=== PATIENT | female | born 1980 | race Caucasian/White ===

== ENCOUNTER 2017-05-07 13:32 | Emergency (ER) | payer OTHER ==
[~2017-05-07 13:32] MED LIST: ADDERALL 10 MG10 MG PO; ATIVAN2 MG PO; CYCLOBENZAPRINE10 MG PO; FLEXERIL5 MG PO; KLONOPIN1 MG PO; NEURONTIN 300300 MG PO
[2017-05-07 14:23] LABS: APPEARANCE HAZY (CLEAR); BILIRUBIN NEGATIVE (NEGATIVE); COLOR YELLOW (YELLOW); GLUCOSE NEGATIVE (NEGATIVE); KETONE NEGATIVE (NEGATIVE); LEUKOCYTE ESTERASE TRACE (NEGATIVE); NITRITE NEGATIVE (NEGATIVE); PROTEIN NEGATIVE (NEGATIVE); UROBILINOGEN NORMAL (NORMAL)
[2017-05-07 14:25] LABS: BACTERIA FEW /hpf (NONE SEEN); MUCUS <1+ /lpf (NONE SEEN); RED CELLS - URINE 0-5 /hpf (0-5); WHITE CELLS - URINE 0-5 /hpf (0-5)
[2017-05-07 14:29] LABS: UDS - AMPHET NEGATIVE QUAL (NEGATIVE); UDS - BARB NEGATIVE QUAL (NEGATIVE); UDS - BENZO POSITIVE QUAL (NEGATIVE); UDS - COCAINE NEGATIVE QUAL (NEGATIVE); UDS - METH NEGATIVE QUAL (NEGATIVE); UDS - OPIATE NEGATIVE QUAL (NEGATIVE); UDS - PCP NEGATIVE QUAL (NEGATIVE)
[2017-05-07 14:33] LABS: UDS - THC POSITIVE QUAL (NEGATIVE)
[2017-05-07 14:43] LABS: BASOPHILS 0.3 % (0-2); HEMATOCRIT 41.2 % (36.0-48.0); HEMOGLOBIN 13.9 g/dL (12-16); IMMATURE GRANULOCYTES 0.3 % (0-5); LYMPHOCYTES 27.6 % (15-50); MCH 29.9 pg (26.0-34.0); MCHC 33.7 g/dL (31.0-37.0); MCV 88.6 fL (80.0-100.0); MEAN PLATELET VOLUME 11.3 fL (7.4-10.4); MONOCYTES 4.5 % (2-11); NEUTROPHILS 65.3 % (40-80); PLATELET COUNT 260 10x3/uL (130-400); RBC 4.65 10x6/uL (4.00-5.40); RDW 12.3 % (11.5-14.5); WBC 10.1 10x3/uL (4.8-10.8)
[2017-05-07 15:03] LABS: ALKALINE PHOSPHATASE 107 U/L (46-116); ALT (SGPT) 24 U/L (10-68); BILIRUBIN - TOTAL 0.19 mg/dL (0.2-1.3); CALC OSMOLALITY 278 mosm/kg (275-300); CALCIUM 8.5 mg/dL (8.5-10.1); CARBON DIOXIDE 26.8 mmol/L (21.0-32.0); CHLORIDE - SERUM 101 mmol/L (98-107); CREATININE - SERUM 0.9 mg/dL (0.6-1.3); GLUCOSE 133 mg/dL (74-106); POTASSIUM - SERUM 3.9 mmol/L (3.5-5.1); PROTEIN - SERUM 7.3 g/dL (6.4-8.2); SODIUM 139 mmol/L (136-145); UREA NITROGEN 10 mg/dL (7-18); eGFR NON AFRICAN AMERICAN 76 mL/min (90-120)
== END 2017-05-08 07:42 ==
LOC: D.ER 13:32
PROVIDERS: Emergency Medicine
DX: F23 Brief psychotic disorder (principal); R45.851 Suicidal ideations

== ENCOUNTER 2018-09-13 14:38 | Emergency (ER) | payer SELFPAY ==
[~2018-09-13] VITALS: Ht 170.2 cm; Wt 72.7 kg
[2018-09-13 14:40] VITALS: Ht 170.2 cm; Wt 72.7 kg
[2018-09-13] MEDS ORDERED: LITHIUM CARBON300 MG PO (14:43)
[2018-09-13] MEDS ORDERED: GENTAK3.5 GM LEFT EYE (15:57)
[2018-09-13 16:35] VITALS: BP 121/90
== END 2018-09-13 16:35 | disposition home or self-care (01) ==
LOC: D.ER 14:38
DX: S05.02XA Injury of conjunctiva and corneal abrasion without foreign body, left eye, initial encounter (principal); X58.XXXA Exposure to other specified factors, initial encounter; Y93.89 Activity, other specified; Y92.89 Other specified places as the place of occurrence of the external cause; G40.909 Epilepsy, unspecified, not intractable, without status epilepticus; F17.200 Nicotine dependence, unspecified, uncomplicated

== ENCOUNTER 2019-01-03 13:58 | Emergency (ER) | payer MEDICAID ==
[~2019-01-03] VITALS: Ht 170.2 cm; Wt 79.5 kg
[~2019-01-03 13:58] MED LIST changes: +GENTAK3.5 GM LEFT EYE; +LITHIUM CARBON300 MG PO
[2019-01-03 14:13] VITALS: Ht 170.2 cm; Wt 79.5 kg
[2019-01-03 14:39] LABS: HCG URINE NEGATIVE (NEGATIVE)
[2019-01-03 14:48] LABS: UDS - AMPHET POSITIVE QUAL (NEGATIVE); UDS - BARB NEGATIVE QUAL (NEGATIVE); UDS - BENZO NEGATIVE QUAL (NEGATIVE); UDS - COCAINE NEGATIVE QUAL (NEGATIVE); UDS - OPIATE NEGATIVE QUAL (NEGATIVE); UDS - PCP NEGATIVE QUAL (NEGATIVE); UDS - THC POSITIVE QUAL (NEGATIVE)
[2019-01-03 14:52] LABS: APPEARANCE CLEAR (CLEAR); BILIRUBIN NEGATIVE (NEGATIVE); COLOR YELLOW (YELLOW); GLUCOSE NEGATIVE (NEGATIVE); KETONE NEGATIVE (NEGATIVE); NITRITE NEGATIVE (NEGATIVE); PROTEIN 1+ mg/dL (NEGATIVE); UROBILINOGEN NORMAL (NORMAL)
[2019-01-03 14:52] LABS: BASOPHILS 0.5 % (0-2); EOSINOPHILS 4.2 % (0-7); HEMATOCRIT 41.2 % (36.0-48.0); HEMOGLOBIN 13.7 g/dL (12-16); IMMATURE GRANULOCYTES 0.2 % (0-5); LYMPHOCYTES 24.7 % (15-50); MCH 29.3 pg (26.0-34.0); MCHC 33.3 g/dL (31.0-37.0); MONOCYTES 5.7 % (2-11); NEUTROPHILS 64.7 % (40-80); RBC 4.68 10x6/uL (4.00-5.40); RDW 12.9 % (11.5-14.5); WBC 10.9 10x3/uL (4.8-10.8)
[2019-01-03 14:53] LABS: EPITHELIAL CELLS 0-5 /hpf (0-5); RED CELLS - URINE 0-5 /hpf (0-5)
[2019-01-03 14:54] LABS: BACTERIA MODERATE /hpf (NONE SEEN)
[2019-01-03 15:09] LABS: PLATELET COUNT 409 10x3/uL (130-400)
--- NOTE | 2019-01-03 15:15 | NUR ---
Due to her suicidal assessment and Dr. Shane's recommendation, she needs to be on 1:1 suicidal watch.
[2019-01-03 15:21] LABS: ALBUMIN 4.6 g/dL (3.4-5.0); ANION GAP 14.5 mmol/L (8-16); BILIRUBIN - TOTAL 0.93 mg/dL (0.2-1.3); CALCIUM 9.7 mg/dL (8.5-10.1); CARBON DIOXIDE 27.5 mmol/L (21.0-32.0); CREATININE - SERUM 1.1 mg/dL (0.6-1.3); LITHIUM 0.32 mmol/L (0.60-1.20); PROTEIN - SERUM 8.3 g/dL (6.4-8.2); SALICYLATES 2.3 mg/dL (2.8-20.0)
[2019-01-03 15:23] LABS: MAGNESIUM - SERUM 2.3 mg/dL (1.8-2.4)
[2019-01-03] MEDS ORDERED: KEFLEX500 MG PO (20:45)
[2019-01-03 20:53] VITALS: BP 142/78
== END 2019-01-03 20:54 | disposition home or self-care (01) ==
LOC: D.ER 13:58
PROVIDERS: Family Medicine
DX: R45.851 Suicidal ideations (principal); R45.1 Restlessness and agitation; F31.9 Bipolar disorder, unspecified; Z91.19 Patient's noncompliance with other medical treatment and regimen; N39.0 Urinary tract infection, site not specified

== ENCOUNTER 2019-01-25 17:26 | Emergency (ER) | payer MEDICAID ==
[~2019-01-25] VITALS: Ht 170.2 cm; Wt 68.2 kg
[~2019-01-25 17:26] MED LIST changes: +KEFLEX500 MG PO
[2019-01-25 17:45] VITALS: Ht 170.2 cm; Wt 68.2 kg
--- NOTE | 2019-01-25 18:13 | NUR ---
After speaking to the patient she denies SI, and she is upset, she is sad, she states she has a hx of bipolar, schizophrenia, and personality disorder, she is off of her medications and she would like to go to [facility] to get help and get back on her meds. According to the Suicide assessment score she scores low and she will not need 1:1 observation.
[2019-01-25 18:41] LABS: BASOPHILS 0.3 % (0-2); EOSINOPHILS 3.4 % (0-7); HEMOGLOBIN 11.8 g/dL (12-16); IMMATURE GRANULOCYTES 0.3 % (0-5); LYMPHOCYTES 16.6 % (15-50); MCH 29.6 pg (26.0-34.0); MCHC 34.7 g/dL (31.0-37.0); MCV 85.4 fL (80.0-100.0); MONOCYTES 4.6 % (2-11); NEUTROPHILS 74.8 % (40-80); PLATELET COUNT 343 10x3/uL (130-400); RBC 3.98 10x6/uL (4.00-5.40); RDW 12.6 % (11.5-14.5); WBC 11.7 10x3/uL (4.8-10.8)
[2019-01-25 18:41] LABS: UDS - AMPHET POSITIVE QUAL (NEGATIVE); UDS - BARB NEGATIVE QUAL (NEGATIVE); UDS - BENZO POSITIVE QUAL (NEGATIVE); UDS - COCAINE NEGATIVE QUAL (NEGATIVE); UDS - OPIATE NEGATIVE QUAL (NEGATIVE); UDS - PCP NEGATIVE QUAL (NEGATIVE); UDS - THC POSITIVE QUAL (NEGATIVE)
[2019-01-25 18:45] LABS: APPEARANCE CLEAR (CLEAR); BILIRUBIN NEGATIVE (NEGATIVE); COLOR YELLOW (YELLOW); GLUCOSE NEGATIVE (NEGATIVE); KETONE NEGATIVE (NEGATIVE); NITRITE NEGATIVE (NEGATIVE); PROTEIN NEGATIVE (NEGATIVE); SPECIFIC GRAVITY 1.015 (1.005-1.020); UROBILINOGEN NORMAL (NORMAL)
[2019-01-25 18:49] LABS: BACTERIA FEW /hpf (NONE SEEN); EPITHELIAL CELLS 0-5 /hpf (0-5); RED CELLS - URINE OCC /hpf (0-5); WHITE CELLS - URINE 0-5 /hpf (0-5)
[2019-01-25 19:00] LABS: ALBUMIN 3.3 g/dL (3.4-5.0); ALKALINE PHOSPHATASE 89 U/L (46-116); ALT (SGPT) 41 U/L (10-68); BILIRUBIN - TOTAL 0.38 mg/dL (0.2-1.3); CALC OSMOLALITY 284 mosm/kg (275-300); CALCIUM 8.8 mg/dL (8.5-10.1); CARBON DIOXIDE 29.2 mmol/L (21.0-32.0); CHLORIDE - SERUM 105 mmol/L (98-107); CREATININE - SERUM 0.6 mg/dL (0.6-1.3); GLUCOSE 113 mg/dL (74-106); POTASSIUM - SERUM 3.7 mmol/L (3.5-5.1); PROTEIN - SERUM 6.8 g/dL (6.4-8.2); SODIUM 142 mmol/L (136-145); UREA NITROGEN 15 mg/dL (7-18); eGFR NON AFRICAN AMERICAN > 90 mL/min (90-120)
[2019-01-25 21:12] VITALS: BP 115/78
== END 2019-01-25 21:12 | disposition home or self-care (01) ==
LOC: D.ER 17:26
PROVIDERS: Family Medicine
DX: F22 Delusional disorders (principal); F41.9 Anxiety disorder, unspecified; F32.9 Major depressive disorder, single episode, unspecified; R44.1 Visual hallucinations

== ENCOUNTER 2019-04-27 22:58 | Emergency (ER) | payer MEDICAID ==
[~2019-04-27] VITALS: Ht 170.2 cm; Wt 68.2 kg
[2019-04-27 23:05] VITALS: Ht 170.2 cm; Wt 68.2 kg
[2019-04-27] MEDS ORDERED: CLONAZEPAM (23:07)
[2019-04-27] MEDS ORDERED: SEROQUEL (23:07)
[2019-04-27] MEDS ORDERED: LITHIUM (23:07)
[2019-04-27 23:44] LABS: APPEARANCE CLEAR (CLEAR); BILIRUBIN NEGATIVE (NEGATIVE); COLOR YELLOW (YELLOW); GLUCOSE NEGATIVE (NEGATIVE); KETONE NEGATIVE (NEGATIVE); NITRITE NEGATIVE (NEGATIVE); PROTEIN TRACE mg/dL (NEGATIVE); UROBILINOGEN NORMAL (NORMAL)
[2019-04-27 23:45] LABS: UDS - AMPHET POSITIVE QUAL (NEGATIVE); UDS - BARB NEGATIVE QUAL (NEGATIVE); UDS - BENZO NEGATIVE QUAL (NEGATIVE); UDS - COCAINE NEGATIVE QUAL (NEGATIVE); UDS - OPIATE NEGATIVE QUAL (NEGATIVE); UDS - PCP NEGATIVE QUAL (NEGATIVE); UDS - THC POSITIVE QUAL (NEGATIVE)
[2019-04-27 23:47] LABS: BACTERIA MODERATE /hpf (NONE SEEN); EPITHELIAL CELLS 0-5 /hpf (0-5); RED CELLS - URINE 0-5 /hpf (0-5)
[2019-04-27 23:49] LABS: HCG URINE NEGATIVE (NEGATIVE)
[2019-04-28 00:04] LABS: HEMATOCRIT 41.3 % (36.0-48.0); HEMOGLOBIN 13.6 g/dL (12-16); LYMPHOCYTES 25.6 % (15-50); MCH 29.1 pg (26.0-34.0); MCHC 32.9 g/dL (31.0-37.0); MCV 88.2 fL (80.0-100.0); MEAN PLATELET VOLUME 9.9 fL (7.4-10.4); PLATELET COUNT 371 10x3/uL (130-400); RBC 4.68 10x6/uL (4.00-5.40)
[2019-04-28 00:23] LABS: ALBUMIN 4.5 g/dL (3.4-5.0); ALKALINE PHOSPHATASE 99 U/L (46-116); ALT (SGPT) 29 U/L (10-68); BILIRUBIN - TOTAL 0.54 mg/dL (0.2-1.3); CALC OSMOLALITY 287 mosm/kg (275-300); CALCIUM 8.9 mg/dL (8.5-10.1); CARBON DIOXIDE 29.7 mmol/L (21.0-32.0); CHLORIDE - SERUM 102 mmol/L (98-107); GLUCOSE 116 mg/dL (74-106); POTASSIUM - SERUM 3.5 mmol/L (3.5-5.1); PROTEIN - SERUM 8.6 g/dL (6.4-8.2); SODIUM 142 mmol/L (136-145); UREA NITROGEN 25 mg/dL (7-18); eGFR NON AFRICAN AMERICAN 66 mL/min (90-120)
[2019-04-28 00:43] LABS: CREATINE KINASE 405 UL (21-215); MAGNESIUM - SERUM 2.4 mg/dL (1.8-2.4)
[2019-04-28 00:47] LABS: CKMB 4.2 U/L (0.0-3.6)
[2019-04-28 02:15] VITALS: BP 122/86
[2019-04-28] MEDS ORDERED: MACROBID100 MG PO (03:02)
== END 2019-04-28 07:17 ==
LOC: D.ER 22:58
PROVIDERS: Family Medicine
DX: R45.851 Suicidal ideations (principal); F15.10 Other stimulant abuse, uncomplicated; F12.10 Cannabis abuse, uncomplicated; R45.850 Homicidal ideations; N39.0 Urinary tract infection, site not specified

== ENCOUNTER 2020-02-26 22:30 | Emergency (ER) | payer SELFPAY ==
[~2020-02-26] VITALS: Ht 170.2 cm; Wt 90.9 kg
[~2020-02-26 22:30] MED LIST changes: +CLONAZEPAM; +LITHIUM; +MACROBID100 MG PO; +SEROQUEL
[2020-02-26 22:46] VITALS: Ht 170.2 cm; Wt 90.9 kg
[2020-02-26] MEDS ORDERED: GABAPENTIN (22:48)
[2020-02-26] MEDS ORDERED: GEODON (22:48)
[2020-02-27 01:41] VITALS: BP 115/71
== END 2020-02-27 01:41 | disposition home or self-care (01) ==
LOC: D.ER 22:30
DX: S80.212A Abrasion, left knee, initial encounter (principal); F13.10 Sedative, hypnotic or anxiolytic abuse, uncomplicated; S80.02XA Contusion of left knee, initial encounter; X58.XXXA Exposure to other specified factors, initial encounter

== ENCOUNTER 2020-03-19 03:10 | Emergency (ER) | payer OTHER ==
[~2020-03-19] VITALS: Ht 170.2 cm; Wt 81.6 kg
[~2020-03-19 03:10] MED LIST changes: +GABAPENTIN; +GEODON
[2020-03-19 03:15] VITALS: Ht 170.2 cm; Wt 81.6 kg
[2020-03-19 03:39] LABS: NITRITE POSITIVE (NEGATIVE)
[2020-03-19 03:40] LABS: BACTERIA MANY /hpf (NEGATIVE); BILIRUBIN NEGATIVE (NEGATIVE); EPITHELIAL CELLS NSEEN /hpf (0-5); GLUCOSE NEGATIVE (NEGATIVE); KETONE NEGATIVE (NEGATIVE); RED CELLS - URINE 0-5 /hpf (0-5); UROBILINOGEN NORMAL (NORMAL); WHITE CELLS - URINE >50 /hpf (NEGATIVE)
[2020-03-19 03:41] LABS: UDS - AMPHET POSITIVE QUAL (NEGATIVE); UDS - BARB NEGATIVE QUAL (NEGATIVE); UDS - BENZO POSITIVE QUAL (NEGATIVE); UDS - COCAINE NEGATIVE QUAL (NEGATIVE); UDS - OPIATE NEGATIVE QUAL (NEGATIVE); UDS - PCP NEGATIVE QUAL (NEGATIVE); UDS - THC POSITIVE QUAL (NEGATIVE)
[2020-03-19] MEDS ORDERED: OMNICEF300 MG PO (03:46)
[2020-03-19 06:52] VITALS: BP 117/77
== END 2020-03-19 06:53 | disposition home or self-care (01) ==
LOC: D.ER 03:10
PROVIDERS: Family Medicine
DX: S39.012A Strain of muscle, fascia and tendon of lower back, initial encounter (principal); N39.0 Urinary tract infection, site not specified; F19.10 Other psychoactive substance abuse, uncomplicated; V89.2XXA Person injured in unspecified motor-vehicle accident, traffic, initial encounter; Y93.9 Activity, unspecified; Y92.9 Unspecified place or not applicable; M54.9 Dorsalgia, unspecified

== ENCOUNTER 2020-04-05 15:24 | Emergency (ER) | payer MEDICAID ==
[~2020-04-05] VITALS: Ht 170.2 cm; Wt 86.4 kg
[~2020-04-05 15:24] MED LIST changes: +OMNICEF300 MG PO
[2020-04-05 15:28] VITALS: Ht 170.2 cm; Wt 86.4 kg
[2020-04-05 16:59] VITALS: BP 140/87
== END 2020-04-05 17:00 | disposition home or self-care (01) ==
LOC: D.ER 15:24
DX: S93.402A Sprain of unspecified ligament of left ankle, initial encounter (principal); M25.572 Pain in left ankle and joints of left foot; X58.XXXA Exposure to other specified factors, initial encounter

== ENCOUNTER 2020-04-10 18:06 | Emergency (ER) | payer MEDICAID ==
[~2020-04-10] VITALS: Ht 170.2 cm; Wt 88.6 kg
[2020-04-10 18:11] VITALS: BP 122/82; Ht 170.2 cm; Wt 88.6 kg
[2020-04-10] MEDS ORDERED: GEODON20 MG PO (18:12)
[2020-04-10] MEDS ORDERED: LITHIUM CARBON300 MG PO (18:12)
[2020-04-10] MEDS ORDERED: KLONOPIN1 MG PO (18:12)
[2020-04-10] MEDS ORDERED: NEURONTIN800 MG PO (18:12)
[2020-04-10] MEDS ORDERED: CYCLOBENZAPRINE10 MG PO (18:12)
[2020-04-10 18:49] LABS: UDS - AMPHET NEGATIVE QUAL (NEGATIVE); UDS - BARB NEGATIVE QUAL (NEGATIVE); UDS - BENZO NEGATIVE QUAL (NEGATIVE); UDS - COCAINE NEGATIVE QUAL (NEGATIVE); UDS - OPIATE NEGATIVE QUAL (NEGATIVE); UDS - PCP NEGATIVE QUAL (NEGATIVE); UDS - THC POSITIVE QUAL (NEGATIVE)
[2020-04-10 18:52] LABS: BASOPHILS 0.5 % (0-2); HEMATOCRIT 36.5 % (36.0-48.0); HEMOGLOBIN 11.3 g/dL (12-16); IMMATURE GRANULOCYTES 0.1 % (0-5); LYMPHOCYTES 24.6 % (15-50); MCH 29.3 pg (26.0-34.0); MCV 94.6 fL (80.0-100.0); MONOCYTES 4.8 % (2-11); RBC 3.86 10x6/uL (4.00-5.40); RDW 13.8 % (11.5-14.5); WBC 7.7 10x3/uL (4.8-10.8)
[2020-04-10 19:02] LABS: ANION GAP 9.2 mmol/L (8-16); CALCIUM 8.8 mg/dL (8.5-10.1); CARBON DIOXIDE 29.7 mmol/L (21.0-32.0); POTASSIUM - SERUM 3.9 mmol/L (3.5-5.1)
[2020-04-10 19:03] LABS: PLATELET COUNT 251 10x3/uL (130-400)
[2020-04-10 19:10] LABS: ALBUMIN 3.6 g/dL (3.4-5.0); BILIRUBIN - TOTAL 0.15 mg/dL (0.2-1.3); MAGNESIUM - SERUM 1.8 mg/dL (1.8-2.4); PROTEIN - SERUM 6.8 g/dL (6.4-8.2)
--- NOTE | 2020-04-10 19:21 | NUR ---
DR. SILVA NOTIFIED REGARDING PT'S BEHAVIOR AND ASSESSMET. SITTER ORDERED. SITTER AT BEDSIDE. ATTENDING MD AND CHARGE NURSE NOTIFIED. RESOURCES REVIEWED. SAFETY PLAN COMPLETED.
[2020-04-10 19:36] LABS: BILIRUBIN NEGATIVE (NEGATIVE); KETONE NEGATIVE (NEGATIVE); NITRITE NEGATIVE (NEGATIVE); UROBILINOGEN NORMAL (NORMAL)
[2020-04-10 19:37] LABS: BACTERIA FEW /hpf (NONE SEEN); EPITHELIAL CELLS 0-5 /hpf (0-5); RED CELLS - URINE OCC /hpf (0-5); WHITE CELLS - URINE 0-5 /hpf (0-5)
[2020-04-10 19:44] LABS: LITHIUM 0.59 mmol/L (0.60-1.20); SALICYLATES 2.7 mg/dL (2.8-20.0)
== END 2020-04-10 21:41 | disposition home or self-care (01) ==
LOC: D.ER 18:06
PROVIDERS: Emergency Medicine
DX: R45.851 Suicidal ideations (principal); R45.850 Homicidal ideations